=== PATIENT | female | born 2000 | race Caucasian/White ===

== ENCOUNTER 2019-10-12 12:00 | Emergency (ER) | payer MEDICAID ==
[~2019-10-12] VITALS: Ht 160 cm; Wt 61.2 kg
[2019-10-12 12:13] VITALS: Ht 160 cm; Wt 61.2 kg
[2019-10-12 15:12] VITALS: BP 129/87
== END 2019-10-12 15:12 | disposition home or self-care (01) ==
LOC: ED 12:00
DX: F41.9 Anxiety disorder, unspecified (principal); R55 Syncope and collapse
CPT/HCPCS: G0480